=== PATIENT | male | born 1985 | race Caucasian/White ===

== ENCOUNTER 2018-11-19 14:47 | Emergency (ER) | payer SELFPAY ==
[~2018-11-19] VITALS: Ht 180.3 cm; Wt 90.7 kg
[2018-11-19 15:04] VITALS: BP 155/94
[2018-11-19] MEDS ORDERED: cefTRIAXone SOD 1,000 MG VL IM ONE (16:15)
== END 2018-11-19 16:44 | disposition home or self-care (01) ==
LOC: ER 14:51
DX: L03.116 Cellulitis of left lower limb (principal); J45.909 Unspecified asthma, uncomplicated
CPT/HCPCS: 73590; 96372; 99283; J0696